=== PATIENT | female | born 2000 | race Caucasian/White ===

== ENCOUNTER 2022-03-31 00:27 | Inpatient (IN) | payer BC, OTHER ==
[~2022-03-31] VITALS: Ht 160 cm; Wt 72.3 kg
[2022-03-31] VITALS (72 sets, daily range): BP systolic 90–154; BP diastolic 45–94
[~2022-03-31 00:27] MED LIST: AZIT200S47 PO; HYDR473S16 PO
[2022-03-31] MEDS ORDERED: MINERAL OIL 30 ML UDC TOP PRN (01:30)
[2022-03-31] MEDS ORDERED: D5 LR IV SOLUTION 1,000 ML IV ONE (02:22)
[2022-03-31 02:27] LABS: BASOPHILS # (AUTO) 0.1 10^3/uL (0.0-0.1); BASOPHILS % (AUTO) 0 % (0-10); EOSINOPHILS # (AUTO) 0.2 10^3/uL (0.0-0.3); EOSINOPHILS % (AUTO) 1 % (0-10); HEMATOCRIT 38 % (35-52); HEMOGLOBIN 13.6 g/dL (11.5-16.0); LYMPHOCYTES # (AUTO) 2.2 10^3/uL (1.0-4.0); LYMPHOCYTES % (AUTO) 17 % (12-44); MEAN CORPUSCULAR HEMOGLOBIN 32 pg (25-34); MEAN CORPUSCULAR HGB CONC 36 g/dL (32-36); MEAN CORPUSCULAR VOLUME 89 fL (80-99); MEAN PLATELET VOLUME 9.7 fL (9.0-12.2); MONOCYTES % (AUTO) 7 % (0-12); NEUTROPHILS # (AUTO) 9.8 10^3/uL (1.8-7.8); NEUTROPHILS % (AUTO) 73 % (42-75); PLATELET COUNT 314 10^3/uL (130-400); WHITE BLOOD COUNT 13.4 10^3/uL (4.3-11.0)
[2022-03-31] MEDS: D5 LR IV SOLUTION 1,000 ML IV SCH ×2 (02:33→10:26)
[2022-03-31 02:49] LABS: BILIRUBIN,URINE NEGATIVE (NEGATIVE); CLARITY,URINE CLOUDY; COLOR,URINE YELLOW; GLUCOSE, URINE (UA) NEGATIVE (NEGATIVE); KETONES,URINE NEGATIVE (NEGATIVE); LEUKOCYTE ESTERASE ,URINE NEGATIVE (NEGATIVE); NITRITE,URINE NEGATIVE (NEGATIVE); PROTEIN,URINE 2+ (NEGATIVE)
[2022-03-31 02:59] LABS: BACTERIA,URINE FEW /HPF; RBC,URINE 0-2 /HPF; WBC,URINE RARE /HPF
[2022-03-31 03:00] LABS: AMORPHOUS SEDIMENT,UR MOD AMOR PHOSPHATE /LPF
--- NOTE | 2022-03-31 03:50 | History & Physical-OB/GYN ---
GUILLERMO BAIRES 03/31/22 0350: History of Present Illness History of Present Illness Reason for visit/HPI Norman Macario is a 22 year old , 37.3 wga who presents to L&D for PROM. Patient reports at 2330 on 03/30 the patient experienced SROM while resting in bed. Fluid was clear. The patient reports scant vaginal bleeding noticed in the toilet shortly after arrival to [facility]. The patient endorses movement and intermittent contractions. The patient states she has had infrequent and irregular contractions for the past 2-3 days, and since SROM they have been more consistent. Patient states contractions are a 0/10 in intensity. Patient reports she received routine care. Patient denies complications throughout . GBS was collected on 03/28, results pending. FHT: baseline 130s, moderate variability, accels present, no decels. TOCO q2-10 minutes. Cat I PRINCIPAL ACCOUNT CLERK History: -No known pap, turning 22 today -STIs: chlamydia in 2021 with treatment -Unknown age of menarche -Regular periods prior to Date of Admission Mar 31, 2022 at 01:11 Date Seen by a Provider: Mar 31, 2022 Time Seen by a Provider: 03:00 I consulted on this patient on 03/31/22 03:45 Attending Physician Vicky Parish MD Admitting Physician Admitting Physician: Vicky Parish MD Attending Physician: Vicky Parish MD Consult Allergies and Home Medications Allergies Coded Allergies: No Known Drug Allergies (Unverified , 05/25/11) Patient Home Medication List Home Medication List Reviewed: Yes No Active Prescriptions or Reported Meds Past [id number] Hx Patient Social History Smoking Status: Never a Smoker Have you traveled recently?: No Alcohol Use?: No Pt feels they are or have been: No Immunizations Up To Date Tetanus Booster (TDap): Less than 5yrs Date of Influenza Vaccine: Nov 27, 2010 Respiratory No (no history of asthma) Reproductive System : Yes Expected Date of Delivery: Apr 18, 2022 Hx : 1 Hx Para: 0 Hx Reproductive Disorders: No Sexually Transmitted Disease: Yes (chlamydia in 2021, treated) HIV/AIDS: No Female Reproductive Disorders: Denies Family Medical History Significant Family History: No Pertinent Family Hx Review of Systems Constitutional: no symptoms reported EENTM: No blurred vision Respiratory: no symptoms reported; No cough, No short of breath Cardiovascular: no symptoms reported; No chest pain Gastrointestinal: No constipation, No diarrhea, No nausea, No vomiting : Yes Expected Date of Delivery: Apr 18, 2022 Skin: no symptoms reported Psychiatric/Neurological: Denies Headache Physical Exam Physical Exam Vital Signs Vital Signs Date Time Temp Pulse Resp B/P (MAP) Pulse Ox O2 Delivery O2 Flow Rate FiO2 03/31/22 01:49 36.9 96 18 140/84 98 Room Air 03/31/22 00:47 36.9 96 18 98 Room Air Capillary Refill : Less Than 3 Seconds Labs Laboratory Tests 03/31/22 00:33: Urine Color YELLOW, Urine Clarity CLOUDY, Urine pH 7.0, Urine Specific [place] 1.025H, Urine Protein 2+H, Urine Glucose (UA) NEGATIVE, Urine Ketones NEGATIVE, Urine Nitrite NEGATIVE, Urine Bilirubin NEGATIVE, Urine Urobilinogen 0.2, Urine Leukocyte Esterase NEGATIVE, Urine RBC (Auto) TRACE-IH, Urine RBC 0-2, Urine WBC RARE, Urine Squamous Epithelial Cells 5-10, Urine Crystals PRESENTH, Urine Amorphous Sediment MOD SHEELA PHOSPHATEH, Urine Bacteria FEWH, Urine Casts NONE, Urine Mucus SMALLH, Urine Culture Indicated NO 03/31/22 02:15: White Blood Count 13.4H, Red Blood Count 4.30, Hemoglobin 13.6, Hematocrit 38, Mean Corpuscular Volume 89, Mean Corpuscular Hemoglobin 32, Mean Corpuscular Hemoglobin Concent 36, Red Cell Distribution Width 12.4, Platelet Count 314, Mean Platelet Volume 9.7, Immature Granulocyte % (Auto) 1, Neutrophils (%) (Auto) 73, Lymphocytes (%) (Auto) 17, Monocytes (%) (Auto) 7, Eosinophils (%) (Auto) 1, Basophils (%) (Auto) 0, Neutrophils # (Auto) 9.8H, Lymphocytes # (Auto) 2.2, Monocytes # (Auto) 1.0, Eosinophils # (Auto) 0.2, Basophils # (Auto) 0.1, Immature Granulocyte # (Auto) 0.2H General Appearance: No Apparent Distress, WD/WN Assessment/Plan Assessment and Plan Problems: (1) Spontaneous rupture of membranes Status: Acute Assessment & Plan: at 37/3 wga, SROM on 03/30 at approximately 2330 GBS unknown, penicillin therapy if prolonged ROM >18hrs, maternal fever US confirmed positioning is vertex Augmentation of labor with pitocin Continuous monitoring (2) 37 weeks gestation of Status: Acute Assessment & Plan: at 37/3 wga, SROM on 03/30 at approximately 2330 GBS unknown, penicillin therapy if prolonged ROM >18hrs, maternal fever US confirmed positioning is vertex Augmentation of labor with pitocin Continuous monitoring Admission Diagnosis Admission Status: Inpatient Order (span 2 midnights) Reason for Inpatient Admission: PROM, 37.3 wga VICKY PARISH MD 03/31/22 0527: Allergies and Home Medications Allergies Coded Allergies: No Known Drug Allergies (Unverified , 05/25/11) Patient Home Medication List No Active Prescriptions or Reported Meds Supervisory-Addendum Brief Supervisory Addendum Verification and Attestation of Medical Student E/M Service A medical student performed and documented this service in my presence. I reviewed and verified all information documented by the medical student and made modifications to such information, when appropriate. I personally performed the physical exam and medical decision making. Vicky Parish, Mar 31, 2022,05:28 GUILLERMO BAIRES Mar 31, 2022 03:50 VICKY PARISH MD Mar 31, 2022 05:27
[2022-03-31] MEDS ORDERED: OXYTOCIN PRE-MIX DRIP 500 ML IV ONE ×2 (03:57→16:43)
[2022-03-31] MEDS: OXYTOCIN PRE-MIX DRIP 500 ML IV SCH ×2 (04:02→16:44)
[2022-03-31] MEDS ORDERED: CATHETER FLUSH 10 ML SYR IV SCH ×2 (06:00→22:00)
[2022-03-31] MEDS ORDERED: fentaNYL INJ 100 MCG/2 ML AMP IVP PRN (07:00)
[2022-03-31] MEDS ORDERED: LACTATED RINGERS 1,000 ML IV SCH (07:30)
[2022-03-31] MEDS ORDERED: fentaNYL 2 mcg/ml BUPIVA 0.125 100 ML ONE (07:36)
[2022-03-31] MEDS ORDERED: PREN1TAB79 PO (08:26)
[2022-03-31] MEDS ORDERED: fentaNYL INJ 100 MCG/2 ML AMP ONE (08:30)
[2022-03-31] MEDS ORDERED: BUPIVACAINE 0.25% 10 ML (SENSORCAINE) VIAL ONE (08:30)
[2022-03-31] MEDS ORDERED: fentaNYL 2 mcg/ml BUPIVA 0.125 100 ML IV SCH (09:15)
[2022-03-31] MEDS ORDERED: CATHETER FLUSH 10 ML SYR IV PRN (09:15)
[2022-03-31] MEDS ORDERED: LACTATED RINGERS 1,000 ML IV ONE (09:15)
[2022-03-31] MEDS ORDERED: NALOXONE 0.4 MG/ML 1 ML (NARCAN) VIAL IV PRN (09:15)
--- NOTE | 2022-03-31 12:29 | Labor Progress Note ---
Labor Progress Note Labor Progress Note Date Seen by Provider: Mar 31, 2022 Time Seen by Provider: 12:10 Subjective: Pt denies complaints. Objective: Cervical exam: /-2 Consistency: soft Position: anterior Presentation: vertex heart tones: 140s beats per minute, moderate variability, reactive Tocometer: 4-5 ctx/10 minutes Assessment/Plan: Norman Macario is a (22 /Para 1 / 0,Gestational Age (wks)37 here for SROM. CEFM/TOCO Pitocin held due to recurrent variable decels, which have improved, continues to have cervical change without pitocin, will continue expectant management Anesthesia: epidural Anticipate vaginal delivery. Vitals - Labs Vital Signs - I&O Vital Signs Date Time Temp Pulse Resp B/P (MAP) Pulse Ox O2 Delivery O2 Flow Rate FiO2 03/31/22 08:35 106 20 140/71 (94) Room Air 03/31/22 08:20 93 20 139/62 (87) Room Air 03/31/22 08:05 37.2 90 20 137/65 (89) Room Air 03/31/22 07:50 80 20 136/79 (98) Room Air 03/31/22 07:35 85 20 131/69 (89) 97 Room Air 03/31/22 07:20 91 20 132/77 (95) 97 Room Air 03/31/22 07:15 84 20 135/67 (89) 97 Room Air 03/31/22 06:50 82 131/76 (94) 03/31/22 06:35 80 122/64 (83) 03/31/22 06:20 81 123/70 (87) 03/31/22 06:04 87 124/77 (93) 03/31/22 05:50 85 129/86 (100) 03/31/22 05:34 86 135/66 (89) 03/31/22 04:51 81 134/68 (90) 03/31/22 04:40 89 131/74 (93) 03/31/22 04:20 72 107/56 (73) 03/31/22 04:04 36.6 75 16 116/70 (85) 03/31/22 01:49 36.9 96 18 140/84 98 Room Air 03/31/22 00:47 36.9 96 18 98 Room Air Labs Laboratory Tests 03/31/22 00:33: Urine Color YELLOW, Urine Clarity CLOUDY, Urine pH 7.0, Urine Specific [place] 1.025H, Urine Protein 2+H, Urine Glucose (UA) NEGATIVE, Urine Ketones NEGATIVE, Urine Nitrite NEGATIVE, Urine Bilirubin NEGATIVE, Urine Urobilinogen 0.2, Urine Leukocyte Esterase NEGATIVE, Urine RBC (Auto) TRACE-IH, Urine RBC 0-2, Urine WBC RARE, Urine Squamous Epithelial Cells 5-10, Urine Crystals PRESENTH, Urine Amorphous Sediment MOD SHEELA PHOSPHATEH, Urine Bacteria FEWH, Urine Casts NONE, Urine Mucus SMALLH, Urine Culture Indicated NO 03/31/22 02:15: White Blood Count 13.4H, Red Blood Count 4.30, Hemoglobin 13.6, Hematocrit 38, Mean Corpuscular Volume 89, Mean Corpuscular Hemoglobin 32, Mean Corpuscular Hemoglobin Concent 36, Red Cell Distribution Width 12.4, Platelet Count 314, Julia n Platelet Volume 9.7, Immature Granulocyte % (Auto) 1, Neutrophils (%) (Auto) 73, Lymphocytes (%) (Auto) 17, Monocytes (%) (Auto) 7, Eosinophils (%) (Auto) 1, Basophils (%) (Auto) 0, Neutrophils # (Auto) 9.8H, Lymphocytes # (Auto) 2.2, Monocytes # (Auto) 1.0, Eosinophils # (Auto) 0.2, Basophils # (Auto) 0.1, Immature Granulocyte # (Auto) 0.2H ANTONIO GARCIA MD Mar 31, 2022 12:29
[2022-03-31] MEDS ORDERED: LIDOCAINE 1% INJ 20 ML VIAL IJ PRN (16:00)
--- NOTE | 2022-03-31 16:28 | OB Labor & Delivery Record ---
Vag Delivery Note Vag Delivery Note Date of Delivery: 03/31/22 Preoperative Diagnosis: Norman Macario is a (22 /Para 1 / 0,Gestational Age (wks)37with 2 days Postoperative Diagnosis: Same Surgeon: ANTONIO GARCIA Metal Framer: Colleen Henderson, OMS4 Anesthesia: epidural Delivery Type: Findings: Viable male infant, apgars 9/9, weight 5#13 Lacerations: bilateral periurethral, first degree perineal laceration Intact placenta with 3 vessel cord. Nuchal cord x 1 reduced, no body cord or shoulder dystocia Estimated Blood Loss: 200 ml Complications: None Condition: Stable Description of Procedure: The patient is a 22 year old female who presented with rupture of membranes. She was admitted and informed consent was obtained. Her labor course was remarkable for augmentation with pitocin. She progressed to complete dilatation and began to push. She was then set up for delivery. The 's head was delivered atraumatically in the MALIA position. A loose nuchal cord was noted and reduced. The shoulders and remainder of the infant's body were then delivered without difficulty. Upon delivery, the was vigorous and placed on maternal chest and the mouth and nares were bulb suctioned. After a delay cord was doubly clamped and cut and the infant remained on maternal chest. An intact placenta with 3-vessel cord delivered via Melodie and there was found to be minimal bleeding.~ Vigorous fundal massage was performed and the fundus was found to be firm. IV oxytocin was given. Examination of the vagina and perineum revealed bilateral periurethral lacerations. The left had a small bleeding vessel which was ligated with figure of 8 stitch. The right was hemostatic and did not require repair. A first degree perineal laceration was repaired in the usual fashion with 3-0 vicryl rapide suture. Following the repair, sponge, instrument and needle counts were correct. Mom and baby were both in stable condition in the labor suite. Vitals - Labs Vital Signs - I&O Vital Signs Date Time Temp Pulse Resp B/P (MAP) Pulse Ox O2 Delivery O2 Flow Rate FiO2 03/31/22 09:30 77 18 116/64 (81) 97 Room Air 03/31/22 09:15 105 18 114/56 (75) 97 Room Air 03/31/22 09:00 37.0 110 18 109/53 (71) 98 Room Air 03/31/22 08:50 94 20 154/68 (96) 100 Room Air 03/31/22 08:35 106 20 140/71 (94) Room Air 03/31/22 08:20 93 20 139/62 (87) Room Air 03/31/22 08:05 37.2 90 20 137/65 (89) Room Air 03/31/22 07:50 80 20 136/79 (98) Room Air 03/31/22 07:35 85 20 131/69 (89) 97 Room Air 03/31/22 07:20 91 20 132/77 (95) 97 Room Air 03/31/22 07:15 84 20 135/67 (89) 97 Room Air 03/31/22 06:50 82 131/76 (94) 03/31/22 06:35 80 122/64 (83) 03/31/22 06:20 81 123/70 (87) 03/31/22 06:04 87 124/77 (93) 03/31/22 05:50 85 129/86 (100) 03/31/22 05:34 86 135/66 (89) 03/31/22 04:51 81 134/68 (90) 03/31/22 04:40 89 131/74 (93) 03/31/22 04:20 72 107/56 (73) 03/31/22 04:04 36.6 75 16 116/70 (85) 03/31/22 01:49 36.9 96 18 140/84 98 Room Air 03/31/22 00:47 36.9 96 18 98 Room Air Labs Laboratory Tests 03/31/22 00:33: Urine Color YELLOW, Urine Clarity CLOUDY, Urine pH 7.0, Urine Specific [place] 1.025H, Urine Protein 2+H, Urine Glucose (UA) NEGATIVE, Urine Ketones NEGATIVE, Urine Nitrite NEGATIVE, Urine Bilirubin NEGATIVE, Urine Urobilinogen 0.2, Urine Leukocyte Esterase NEGATIVE, Urine RBC (Auto) TRACE-IH, Urine RBC 0-2, Urine WBC RARE, Urine Squamous Epithelial Cells 5-10, Urine Crystals PRESENTH, Urine Amorphous Sediment MOD SHEELA PHOSPHATEH, Urine Bacteria FEWH, Urine Casts NONE, Urine Mucus SMALLH, Urine Culture Indicated NO 03/31/22 02:15: White Blood Count 13.4H, Red Blood Count 4.30, Hemoglobin 13.6, Hematocrit 38, Mean Corpuscular Volume 89, Mean Corpuscular Hemoglobin 32, Mean Corpuscular Hemoglobin Concent 36, Red Cell Distribution Width 12.4, Platelet Count 314, Mean Platelet Volume 9.7, Immature Granulocyte % (Auto) 1, Neutrophils (%) (Auto) 73, Lymphocytes (%) (Auto) 17, Monocytes (%) (Auto) 7, Eosinophils (%) (Auto) 1, Basophils (%) (Auto) 0, Neutrophils # (Auto) 9.8H, Lymphocytes # (Auto) 2.2, Monocytes # (Auto) 1.0, Eosinophils # (Auto) 0.2, Basophils # (Auto) 0.1, Immature Granulocyte # (Auto) 0.2H ANTONIO GARCIA MD Mar 31, 2022 16:28
[2022-03-31] MEDS ORDERED: TETANUS,DIPTH,PERTUSS P/F (BOOSTRIX) 0.5 ML VIAL IM ONE (16:30)
[2022-03-31] MEDS ORDERED: BENZOCAINE/MENTHOL (DERMOPLAST) 56 ML CAN TP PRN (16:30)
[2022-03-31] MEDS ORDERED: OXYTOCIN PRE-MIX DRIP 500 ML IV SCH (16:30)
[2022-03-31] MEDS ORDERED: MEASLES,MUMPS,RUBELLA 1 EA INJ SQ ONE (16:30)
[2022-03-31] MEDS: IBUPROFEN 600 MG (MOTRIN) TAB PO SCH (17:45)
[2022-03-31] MEDS: WITCH HAZEL(TUCKS) 40 EA JAR TOP PRN (17:46)
[2022-03-31] MEDS: DOCUSATE SODIUM 100 MG (COLACE) CAP PO SCH (21:40)
[2022-04-01 00:35] VITALS: BP 106/55
[2022-04-01] MEDS: IBUPROFEN 600 MG (MOTRIN) TAB PO SCH ×5 (00:36→22:28)
[2022-04-01 04:38] VITALS: BP 108/55
[2022-04-01 05:42] LABS: BASOPHILS # (AUTO) 0.1 10^3/uL (0.0-0.1); BASOPHILS % (AUTO) 1 % (0-10); EOSINOPHILS # (AUTO) 0.2 10^3/uL (0.0-0.3); EOSINOPHILS % (AUTO) 2 % (0-10); HEMATOCRIT 37 % (35-52); LYMPHOCYTES # (AUTO) 2.1 10^3/uL (1.0-4.0); LYMPHOCYTES % (AUTO) 14 % (12-44); MEAN CORPUSCULAR HEMOGLOBIN 32 pg (25-34); MEAN CORPUSCULAR HGB CONC 36 g/dL (32-36); MEAN CORPUSCULAR VOLUME 90 fL (80-99); MEAN PLATELET VOLUME 9.6 fL (9.0-12.2); MONOCYTES # (AUTO) 0.9 10^3/uL (0.0-1.0); MONOCYTES % (AUTO) 6 % (0-12); NEUTROPHILS # (AUTO) 11.5 10^3/uL (1.8-7.8); NEUTROPHILS % (AUTO) 77 % (42-75); PLATELET COUNT 256 10^3/uL (130-400); WHITE BLOOD COUNT 14.9 10^3/uL (4.3-11.0)
[2022-04-01] MEDS: DOCUSATE SODIUM 100 MG (COLACE) CAP PO SCH ×2 (08:47→22:27)
[2022-04-01 09:14] VITALS: BP 112/61
--- NOTE | 2022-04-01 09:50 | Anesthesia-Regional Post-Op ---
Regional Patient Condition Mental Status: Alert, Oriented x3 Circulation: Same as Pre-Op Headache: Absent Sensation: Full Recovery Motor Block: Absent Post Op Complications Complications None Follow Up Care/Instructions Patient Instructions None needed. Anesthesia/Patient Condition Patient is doing well, no complaints, stable vital signs, no apparent adverse anesthesia problems. No complications reported per nursing. JOHN LANDRY CRNA Apr 01, 2022 09:50
[2022-04-01 12:35] VITALS: BP 127/72
[2022-04-01] MEDS ORDERED: IBUP-844 PO (14:00)
[2022-04-01] MEDS: WITCH HAZEL(TUCKS) 40 EA JAR TOP PRN (14:51)
--- NOTE | 2022-04-01 15:52 | Postpartum Progress Note ---
Note Note Day # 1 Subjective: Patient is without complaints. Ambulating, voiding. Tolerating a regular diet without nausea or vomiting. Normal lochia. Pain is well controlled with oral pain medications. Breast feeding with some difficulty. Objective: Laboratory Tests Test 03/31/22 00:33 03/31/22 02:15 04/01/22 05:07 Range/Units Urine Color YELLOW Urine Clarity CLOUDY Urine pH 7.0 5-9 Urine Specific [place] 1.025 H 1.016-1.022 Urine Protein 2+ H NEGATIVE Urine Glucose (UA) NEGATIVE NEGATIVE Urine Ketones NEGATIVE NEGATIVE Urine Nitrite NEGATIVE NEGATIVE Urine Bilirubin NEGATIVE NEGATIVE Urine Urobilinogen 0.2 < = 1.0 MG/DL Urine Leukocyte Esterase NEGATIVE NEGATIVE Urine RBC (Auto) TRACE-I H NEGATIVE Urine RBC 0-2 /HPF Urine WBC RARE /HPF Urine Squamous Epithelial Cells 5-10 /HPF Urine Crystals PRESENT H /LPF Urine Amorphous Sediment MOD SHEELA PHOSPHATE H /LPF Urine Bacteria FEW H /HPF Urine Casts NONE /LPF Urine Mucus SMALL H /LPF Urine Culture Indicated NO White Blood Count 13.4 H 14.9 H 4.3-11.0 10^3/uL Red Blood Count 4.30 4.06 3.80-5.11 10^6/uL Hemoglobin 13.6 13.0 11.5-16.0 g/dL Hematocrit 38 37 35-52 % Mean Corpuscular Volume 89 90 80-99 fL Mean Corpuscular Hemoglobin 32 32 25-34 pg Mean Corpuscular Hemoglobin Concent 36 36 32-36 g/dL Red Cell Distribution Width 12.4 12.3 10.0-14.5 % Platelet Count 314 256 130-400 10^3/uL Mean Platelet Volume 9.7 9.6 9.0-12.2 fL Immature Granulocyte % (Auto) 1 1 % Neutrophils (%) (Auto) 73 77 H 42-75 % Lymphocytes (%) (Auto) 17 14 12-44 % Monocytes (%) (Auto) 7 6 0-12 % Eosinophils (%) (Auto) 1 2 0-10 % Basophils (%) (Auto) 0 1 0-10 % Neutrophils # (Auto) 9.8 H 11.5 H 1.8-7.8 10^3/uL Lymphocytes # (Auto) 2.2 2.1 1.0-4.0 10^3/uL Monocytes # (Auto) 1.0 0.9 0.0-1.0 10^3/uL Eosinophils # (Auto) 0.2 0.2 0.0-0.3 10^3/uL Basophils # (Auto) 0.1 0.1 0.0-0.1 10^3/uL Immature Granulocyte # (Auto) 0.2 H 0.2 H 0.0-0.1 10^3/uL Syphilis Serology Non-Reactive Non-Reactive Physical Exam: General - Alert and oriented, no apparent distress Lungs - CTAB Heart - RRR, no murmur Abdomen - Soft, appropriately tender to palpation, non-distended, fundus firm at umbilicus Extremities - no edema, negative Aisha's bilaterally Assessment: post- day # 1, status post spontaneous vaginal delivery. Recovering well, hemodynamically stable Plan: Routine care. Encourage breast feeding. Encourage ambulation. Vitals - Labs Vital Signs - I&O Vital Signs Date Time Temp Pulse Resp B/P (MAP) Pulse Ox O2 Delivery O2 Flow Rate FiO2 04/01/22 12:35 36.3 79 16 127/72 (90) 100 Room Air 04/01/22 09:14 36.4 82 16 112/61 (78) 97 Room Air 04/01/22 04:38 36.1 84 20 108/55 (72) 98 Room Air 04/01/22 00:35 36.2 79 18 106/55 (72) 98 Room Air 03/31/22 21:40 36.0 86 16 93/56 (68) 98 Room Air 03/31/22 18:05 36.9 77 18 132/78 (96) 97 Room Air 03/31/22 17:46 80 18 130/71 (90) Room Air 03/31/22 17:30 36.8 81 18 138/61 (86) 98 Room Air 03/31/22 17:17 88 18 90/45 (60) Room Air 03/31/22 17:06 83 18 136/72 (93) Room Air 03/31/22 16:46 37.0 79 18 128/61 (83) Room Air 03/31/22 16:30 96 18 124/62 (82) Room Air 03/31/22 16:15 37.4 85 18 133/69 (90) 98 Room Air 03/31/22 16:00 120 18 136/74 (94) Room Air 03/31/22 15:45 78 18 130/75 (93) 97 Room Air I & O 04/01/22 07:00 Intake Total 2100 ml Balance 2100 ml Labs Laboratory Tests 04/01/22 05:07: White Blood Count 14.9H, Red Blood Count 4.06, Hemoglobin 13.0, Hematocrit 37, Mean Corpuscular Volume 90, Mean Corpuscular Hemoglobin 32, Mean Corpuscular Hemoglobin Concent 36, Red Cell Distribution Width 12.3, Platelet Count 256, Mean Platelet Volume 9.6, Immature Granulocyte % (Auto) 1, Neutrophils (%) (Auto) 77H, Lymphocytes (%) (Auto) 14, Monocytes (%) (Auto) 6, Eosinophils (%) (Auto) 2, Basophils (%) (Auto) 1, Neutrophils # (Auto) 11.5H, Lymphocytes # (Auto) 2.1, Monocytes # (Auto) 0.9, Eosinophils # (Auto) 0.2, Basophils # (Auto) 0.1, Immature Granulocyte # (Auto) 0.2H ANTONIO GARCIA MD Apr 01, 2022 15:52
[2022-04-01 16:55] VITALS: BP 121/60
[2022-04-01 22:33] VITALS: BP 128/71
[2022-04-02 04:10] VITALS: BP 125/74
[2022-04-02] MEDS: IBUPROFEN 600 MG (MOTRIN) TAB PO SCH ×2 (04:11→10:03)
[2022-04-02 07:58] VITALS: BP 122/82
--- NOTE | 2022-04-02 09:09 | Discharge Summary ---
Discharge Summary Hospital Course Problems Reviewed?: Yes Problems/Diagnosis: (1) Spontaneous vaginal delivery Status: Acute Assessment & Plan: Uncomplicated. First degree perineal laceration repair. Hospital Course Date of Admission: Mar 31, 2022 at 01:11 Admission Diagnosis : Rupture of membranes 37 weeks gestation Family Physician/Provider: Antonio Parish MD Date of Discharge: 04/02/22 Discharge Diagnosis: See problem list Hospital Course: 22 yo G1 presented with spontaneous rupture of membranes at 37 weeks gestation, required pitocin augmentation but had burkett and uncomplicated labor and vaginal delivery with first degree perineal laceration repair. Uncomplicated course with no anemia. Labs and Pending Lab Test: Home Meds Active Ibu (Ibuprofen) 600 Mg Tablet 600 Mg PO Q6HR PRN Reported Vitamins ( Vit W-Ca,Fe,FA(<1 mg)) 27 Mg Iron-800 Mcg Tablet 1 Each PO DAILY Activity: Activity as Tolerated (avoid strenuous activity x 6 weeks) Nothing Inside Vagina: No Douching, No [place], No Tampons Discharge Diet: Regular Diet Symptoms to Report to : Swelling Increased, Bleeding Excessive, Fever Over 101 Degrees F, Pain/Pressure in Chest, Cramps in Feet or Legs, Vaginal Discharge Foul, Shortness of Breath For Any Problems or Questions: Contact Your Physician Discharge Physical Examination Allergies: Coded Allergies: No Known Drug Allergies (Unverified , 05/25/11) Vitals & I&Os Vital Signs Date Time Temp Pulse Resp B/P (MAP) Pulse Ox O2 Delivery O2 Flow Rate FiO2 04/02/22 07:58 36.6 81 18 122/82 (95) 98 Room Air General Appearance: No Apparent Distress Respiratory: Lungs Clear Cardiovascular: Regular Rate, Rhythm Skin: Normal Color Neurologic/Psychiatric: Alert, Normal Mood/Affect Discharge Summary Date of Admission Mar 31, 2022 at 01:11 Date of Discharge Discharge Date: Apr 02, 2022 Discharge Time: 1630 Discharge Diagnosis (1) Spontaneous rupture of membranes Status: Acute Assessment & Plan: at 37/3 wga, SROM on 03/30 at approximately 2330 GBS unknown, penicillin therapy if prolonged ROM >18hrs, maternal fever US confirmed positioning is vertex Augmentation of labor with pitocin Continuous monitoring (2) 37 weeks gestation of Status: Acute Assessment & Plan: at 37/3 wga, SROM on 03/30 at approximately 2330 GBS unknown, penicillin therapy if prolonged ROM >18hrs, maternal fever US confirmed positioning is vertex Augmentation of labor with pitocin Continuous monitoring Supervisory-Addendum Brief Verification & Attestation Participated in pt care: other (this is an attending note) Personally performed: other (this is an attending note) Care discussed with: other (this is an attending note) Procedures: other (this is an attending note) this is an attending note, not a student note, I wrote the entirety of this note. ANTONIO PARISH MD Apr 02, 2022 09:09
[2022-04-02] MEDS: DOCUSATE SODIUM 100 MG (COLACE) CAP PO SCH (10:03)
[2022-04-02 13:25] VITALS: BP 122/82
== END 2022-04-02 13:25 | disposition home or self-care (01) | DRG 807 ==
LOC: WSo 00:27 → LDRP 00:28 → WSo 01:10 → LDRP 01:11
PROVIDERS: ADMIT Family Medicine; ATTEND Family Medicine
PROC: 10E0XZZ Delivery of Products of Conception, External Approach (ICD-10-PCS; principal; 2022-03-31)
PROC: 0HQ9XZZ Repair Perineum Skin, External Approach (ICD-10-PCS; 2022-03-31)
PROC: 0UQMXZZ Repair Vulva, External Approach (ICD-10-PCS; 2022-03-31)
DX: O42.02 Full-term premature rupture of membranes, onset of labor within 24 hours of rupture (principal); Z37.0 Single live birth; Z3A.37 37 weeks gestation of pregnancy; O70.0 First degree perineal laceration during delivery; O71.82 Other specified trauma to perineum and vulva; O69.81X0 Labor and delivery complicated by cord around neck, without compression, not applicable or unspecified
CPT/HCPCS: 36415; 81000; 85025; 86780; 86850; 86900; 86901; 99212